=== PATIENT | female | born 1940 | race Caucasian/White ===

== ENCOUNTER → 2017-01-01 | Outpatient (CLI) | payer OTHER ==
[~2017-01-01] MED LIST: ACETAMINOPHEN-1 EACH; ADULT LOW DOSE81 MG PO; AMBIEN 10 MG TA10 MG PO; AMOXICILLIN 50500 M1 PO; APAP/CODEINE ELI5 M1 OR; APAP650 PO; BENADRYL25 MG PO; CELEBREX 200 M200 M1 PO; CELEBREX 200 M200 MG PO; CELEXA10 MG PO; CLARITIN PO; CLARITIN10 M2 PO; COQ1050 MG PO; COUMADIN 4 MG TA4 M1 PO; DOXYCYCLINE 10100 M1 PO; FLEXERIL PO; FOSAMAX 70 MG T70 M1 PO; HYDROCHLOROTHIA25 M2 PO; HYDROCODON-ACE1 EAC5 PO; HYDROCODONE-AP1 EAC6 PO; HYDROCODONE-AP1 EACH PO; LIORESAL 10 MG10 MG PO; LISINOPRIL10 MG PO; LORTAB 5 MG/5001 TA1 PO; MIRALAX255 GM PO; NEXIUM40 MG PO; NORTRIPTYLINE H75 M1 PO; OXYCODONE PO; PREDNISONE 20 M20 MG PO; SKELAXIN 800 M800 M1 PO; TRAMADOL 50 MG50 MG PO; UNICOMPLEX M TA1 TA1 PO; VITAMIN B COMP1 EACH PO; VITAMIN D2000 UNIT PO; ZANAFLEX2 M1 PO; ZANTAC 150MG T150 MG PO; [UNRECOGNIZED DRUG - OTHER] PO
== END ==
LOC: NUC 12-28 08:36
DX: M79.641 Pain in right hand (principal); M79.671 Pain in right foot

== ENCOUNTER → 2019-01-17 | Outpatient (CLI) | payer OTHER ==
[~2019-01-17] VITALS: Ht 157.5 cm; Wt 53.5 kg
[~2019-01-17] MED LIST changes: +CENTRUM SILVER1 EAC4 PO; +CO Q-10100 MG PO; +LISINOPRIL-HCT1 EAC1 PO; +OMEGA-31000 M1 PO; +PRAVASTATIN SOD10 MG PO; +PROBIOTIC1 EAC1 PO; +[UNRECOGNIZED DRUG - OTHER] PO
--- NOTE | ~2019-01-17 | P ---
[facility] [place] [place] [address] PROCEDURE REPORT Name: KEMAL SYED Room #: REG [facility].#: [id number] Admission: 01/17/19 ������������������ Attend Phys: Clifton Vargas MD Discharge: ������������������ Date of : 44 Report #: [id number] THIS REPORT FOR: //name// CC: Indio Vargas OUTPATIENT UPPER ENDOSCOPY REPORT BRIEF HISTORY: The patient is a 78-year-old woman with the prior history of reflux disease, but now complains of esophageal spasm occurring about 3 times daily. She is not taking any medicine for reflux. PREOPERATIVE DIAGNOSES: History of reflux disease and esophageal spasm. POSTOPERATIVE DIAGNOSES: 1. Small hiatus hernia. 2. Intermittently seen Schatzki ring. MEDICATIONS: Deep sedation with propofol per anesthesia. SPECIMEN: None. ESTIMATED BLOOD LOSS: None. PROCEDURE: EGD and Tarango dilation. FINDINGS: Prior to propofol sedation, procedure of upper endoscopy was reviewed with the patient as well as potential risks and its complications. She indicates she understands and desires to proceed. DESCRIPTION OF PROCEDURE: With the patient in left lateral decubitus position, the Olympus video endoscope was inserted in cervical esophagus under direct vision without difficulty. Examination of this organ through its entire length revealed normal esophageal mucosa down the squamocolumnar junction. The squamocolumnar junction was inspected and noted to be unremarkable. No ulcers or erosions were seen. However, intermittently, a mild Schatzki ring was seen. In addition, there was a small hiatus hernia, was intermittently seen, and was no more than 2 cm in greatest dimension. Scope was advanced in the stomach and was examined on the end view as well as retroflexed views. The gastric mucosa was normal. Antrum was unremarkable. Examination in the proximal stomach revealed normal mucosa and specifically, no masses were seen in the cardia. The pylorus, duodenal bulb, and postbulbar duodenal sweep were inspected and noted to be unremarkable. At that point, the scope was withdrawn and careful circumferential views confirmed the above findings. The patient tolerated the procedure well. [facility] [address] [place] [address] PROCEDURE REPORT Name: KEMAL SYED EMILY Room #: REG [facility] Neri.#: [id number] Admission: 01/17/19 ������������������ Attend Phys: Clifton Vargas MD Discharge: ������������������ Date of : 42 Report #: [id number] Subsequently, she was dilated with a passage of a 50-[place] Tarango dilator. There was no resistance. CONDITION OF THE PATIENT UPON DISCHARGE: Following the procedure, the patient was drowsy. She will be discharged home when fully ambulatory. INSTRUCTIONS TO THE PATIENT AND FAMILY AT THE TIME OF DISCHARGE: I do not find the evidence of esophagitis. She describes spasm. She does have a Schatzki ring. She was dilated. I would suggest a PPI on a daily basis as spasm may be related to reflux. We will have her take pantoprazole 40 mg daily. She is to return for a followup in the office in about 6-8 weeks. She is to return for a dilation on an as needed basis for her symptoms of dysphagia. Proceed with colonoscopy at this time. ��������������������������������������������� ���������������������������������������� By: ��������������������������������������������� [id number] Clifton Vargas MD /nt
--- NOTE | ~2019-01-17 | P ---
[facility] [place] [address] PROCEDURE REPORT Name: KUNALKEMALCLAUDE DIAZ Room #: REG [facility].#: [id number] Admission: 01/17/19 ������������������ Attend Phys: Clifton Vargas MD Discharge: ������������������ Date of : 44 Report #: [id number] THIS REPORT FOR: //name// CC: Indio Vargas OUTPATIENT COLONOSCOPY REPORT BRIEF HISTORY: The patient is a 78-year-old woman with a history of colon polyps. She also has a family history of colon cancer in mother at age 48. Her brother had pancreatic cancer at age 50 and a sister had ovarian cancer in her early 50s. I do not believe there has been any genetic testing in the family. PREOPERATIVE DIAGNOSIS: High risk screening colonoscopy. POSTOPERATIVE DIAGNOSIS: Moderate sigmoid diverticulosis coli. MEDICATIONS: Deep sedation with propofol per anesthesia. SPECIMEN: None. ESTIMATED BLOOD LOSS: None. PROCEDURE: Colonoscopy to cecum and terminal ileum. FINDINGS: Prior to propofol sedation, procedure of colonoscopy discussed with the patient as well as potential risks and its complications. She indicates she understands and desires to proceed. DESCRIPTION OF PROCEDURE: With the patient in left lateral decubitus position, digital examination was completed, which revealed no abnormalities. Subsequently, the Olympus video colonoscope was introduced in the rectum, advanced under direct vision to the cecum. Done with minimal difficulty. The cecum was identified by the ileocecal valve and the appendiceal orifice. I was able to visualize the distal segment of terminal ileum, which was inspected and noted to be unremarkable. At that point, the scope was slowly withdrawn and careful circumferential views obtained including retroflexion of the scope in the ascending colon. Upon slow withdrawal of the scope, the prep was generally good. There were a couple areas which needed some cleanup and most of this material could be removed. Mucosa was inspected and noted to be within normal limits. No neoplastic inflammatory changes were seen. She had normal colonic mucosa throughout the entire colon. In the sigmoid colon, there was [id number] sigmoid diverticular disease. Scope was withdrawn in the rectum, no abnormalities were seen. Upon retroflexion, no abnormalities were seen. Scope was withdrawn. The patient tolerated the procedure well. [facility] [address] [place] [address] PROCEDURE REPORT Name: KUNALKEMAL EMILY [id number] Admission: 01/17/19 ������������������ Attend Phys: Clifton Vargas MD Discharge: ������������������ Date of : 44 Report #: [id number] CONDITION OF THE PATIENT UPON DISCHARGE: Following procedure, the patient was drowsy, arousable, conversant and will be discharged home when fully ambulatory. INSTRUCTIONS TO THE PATIENT AND FAMILY AT THE TIME OF DISCHARGE: No evidence of neoplastic disease. FAMILY HISTORY: Somewhat worrisome. She does have a history of colon polyps. However, no polyps were identified on this procedure or the previous procedure 02/2015. I think followup in 5 years would be reasonable. She will return to the care of Dr. Indio Sawant and return to see me as needed. The last colonoscopy was 02/2015. Withdrawal time from the cecum was 15 minutes. ��������������������������������������������� ���������������������������������������� By: ��������������������������������������������� [id number] Clifton Vargas MD /nt
== END | disposition home or self-care (01) ==
LOC: GI 09:09
DX: Z12.11 Encounter for screening for malignant neoplasm of colon (principal); Z86.010 Personal history of colon polyps; Z80.0 Family history of malignant neoplasm of digestive organs; K57.30 Diverticulosis of large intestine without perforation or abscess without bleeding; K22.2 Esophageal obstruction; K44.9 Diaphragmatic hernia without obstruction or gangrene; I10 Essential (primary) hypertension; E78.5 Hyperlipidemia, unspecified; G43.909 Migraine, unspecified, not intractable, without status migrainosus; Z90.49 Acquired absence of other specified parts of digestive tract; Z86.73 Personal history of transient ischemic attack (TIA), and cerebral infarction without residual deficits; Z98.890 Other specified postprocedural states; Z98.41 Cataract extraction status, right eye; Z98.42 Cataract extraction status, left eye; Z79.899 Other long term (current) drug therapy; Z88.8 Allergy status to other drugs, medicaments and biological substances; Z79.82 Long term (current) use of aspirin
CPT/HCPCS: 43450; 43235; G0105; 62110; 62900

== ENCOUNTER → 2019-03-26 | Outpatient (CLI) | payer OTHER | LOC: NUC 08:53 | DX: S82.841A Displaced bimalleolar fracture of right lower leg, initial encounter for closed fracture (principal); M81.0 Age-related osteoporosis without current pathological fracture; Z78.0 Asymptomatic menopausal state; X58.XXXA Exposure to other specified factors, initial encounter; Y93.89 Activity, other specified; Y92.89 Other specified places as the place of occurrence of the external cause; Y99.8 Other external cause status ==

== ENCOUNTER → 2019-04-04 | Outpatient (CLI) | payer OTHER ==
[~2019-04-04] MED LIST changes: +ALL DAY ALLERGY10 M3 PO; +CIPROFLOXACIN750 MG PO; +CITRACAL SOFT1 EACH PO; +HYDROCHLOROTH12.5 M1 PO; +MULTI VITAMIN1 EACH PO; +VITAMIN D31000 UNI3 PO; +ZESTRIL20 MG PO
--- NOTE | 2019-04-04 15:47 | NUR ---
PICC PLACED FOR LT ABX.
== END ==
LOC: OPONC 07:40
DX: T81.49XA Infection following a procedure, other surgical site, initial encounter (principal)
CPT/HCPCS: 27000; 95000

== ENCOUNTER 2019-04-08 09:03 | Inpatient (IN) | payer OTHER ==
[~2019-04-08] VITALS: Ht 152.4 cm; Wt 52.2 kg
[2019-04-08 10:07] VITALS: BP 156/64
[2019-04-08 10:17] LABS: CREATININE 0.8 mg/dL (0.6-1.0); POTASSIUM 3.7 mmol/L (3.5-5.1)
[2019-04-08 16:36] VITALS: BP 142/82
[2019-04-08 19:20] VITALS: BP 121/59
--- NOTE | 2019-04-08 20:09 | NUR ---
PT CARE ASSUMED AT 1700. A&Ox4. PT. IMMOBILE DUE TO A STROKE FROM 4 YEARS AGO. PT HAS CHRONIC LEG SPASMS WHICH SHE TAKES BACLOFEN AND HYDROCODONE FOR ALTERNATING WITH FENTANYL. PT. VITALS ARE STABLE POST OP. PT HAD HARDWARE REMOVED FROM [employer] R. ANKLE AND IS ON A ANTIBIOTIC BULB PUMP WHICH SHE CAME FROM FROM HOME PER AGUSTIN MARTINEZ. PT. SON CAME AT BED SIDE. PT. HAS PERSONAL NURSE THAT IS VERY INVOLVED IF QUESTIONS SHE CAN BE CALLED. PHONE NUMBER IS ON THE BOARD. BED IS LOCKED IN A LOW POSITION. CALL LIGHT IN REACH. PT. HAS HEMOVAC WITH MINIMAL DRAINAGE. PT. IS ON A CLEAR LIQUID DIET AND IS TOLERATING THIS WELL. SHE CAN ADVANCE TO A REGULAR DIET WITH BREAKFAST TOMORROW.
[2019-04-09 04:47] VITALS: BP 120/56
[2019-04-09 05:40] LABS: HEMATOCRIT 28.7 % (37.0-47.0); HEMOGLOBIN 9.6 gm/dL (12.0-15.0); POTASSIUM 3.9 mmol/L (3.5-5.1)
--- NOTE | 2019-04-09 08:32 | EKG ---
[address] [address] ELECTROCARDIOGRAM REPORT Name: KEMAL SYED EMILY Room #: 438-P ADM IN M.R.#: [id number] Admission: 04/08/19 Attend Phys: Gonzalez Stokes MD Discharge: Date of : 42 Report #: [id number] THIS REPORT FOR: //name// [facility] Test Date: 2019-04-08 Test Time: 09:36:51 Pat Name: KEMAL SYED Department: Room: 438 Gender: F Business Management Professor: DERECK : 1940 Requested By: Gonzalez Stokes Order Number: [id number] MD: Marky Engle Measurements Intervals [place] Rate: 66 P: 48 WV: 155 QRS: 5 QRSD: 103 T: 30 QT: 431 QTc: 452 Interpretive Statements Sinus rhythm Baseline wander in lead(s) V2,V3 Compared to ECG 10/07/2009 14:29:00 No significant changes Electronically Signed On 04-09-2019 8:31:50 SLURRY WORKER by Marky Engle [email or web address] <ELECTRONICALLY SIGNED> By: Marky Engle MD 04/09/19 0831 Marky Engle MD /EPI
--- NOTE | 2019-04-09 12:13 | NUR ---
INITIAL ASSESSMENT: Pt evaluated for d/c planning needs. Reviewed chart and spoke with nurse, pt and caregiver. Pt is alert and oriented. Pt was hospitalized at [facility] and went home with [facility] and IVAB through [facility]. Pt was using w/c for ambulation and is non-weight bearing on ankle. Pt plans on returning home on d/c from hospital. Notified [facility] and erita to inform of admission. Will remain available to assist as needed.
--- NOTE | 2019-04-09 12:20 | O ---
[facility] [place] [place] [address] OPERATIVE REPORT Name: KEMAL SYED EMILY Room #: 438-P ADM IN M.R.#: [id number] Admission: 04/08/19 Attend Phys: Gonzalez Stokes MD Discharge: Date of : 42 Report #: [id number] THIS REPORT FOR: //name// CC: Lenard Stokes DATE OF SERVICE: 04/08/2019 PREOPERATIVE DIAGNOSIS: Right ankle wound and hardware infection. POSTOPERATIVE DIAGNOSIS: Right ankle wound and hardware infection. PROCEDURE: Right ankle wound irrigation and debridement with hardware removal. SURGEON: Dr. Gonzalez Stokes. WEIGHT CONTROL ENGINEER: Marie Mckeon. ANESTHESIA: General. ESTIMATED BLOOD LOSS: Minimal. DRAINS: No drains. TOURNIQUET TIME: 20 minutes. DESCRIPTION OF PROCEDURE: The patient was brought to operating room where her right lower extremity was prepped and draped in sterile manner. The extremity was elevated, exsanguinated, tourniquet placed 300 mmHg. The right lower extremity was elevated and a tourniquet placed to 300 mmHg. An elliptical incision was made about the patient's previous wound and open wound. This ellipse of skin was then removed taken directly down to the bone, then did expose the hardware as well. The wound was irrigated copiously and the hardware was then subsequently removed, 6 screws were removed with the small fragment screwdriver. The patient's lateral plate was also removed. After taking cultures, the patient's wound was irrigated with normal saline solution with pulsatile lavage, 3 liters of saline solution was run through the pulsatile lavage. The wound was then closed over a Hemovac drain with 2-0 nylon suture in simple stitch manner. The wound was dressed with Xeroform, 4 x 4s, and sterile soft compressive dressing was placed. Tourniquet was let down at 30 minutes. Toes were pink and warm with good capillary refill. There were no complications [address] [address] OPERATIVE REPORT Name: KEMAL SYED [facility] Room #: 438-P [facility] IN ..#: [id number] Admission: 04/08/19 Attend Phys: Gonzalez Stokes MD Discharge: Date of : 42 Report #: [id number] from the procedure. The patient tolerated the procedure well and went to recovery room without incident. <ELECTRONICALLY SIGNED> By: Gonzalez Stokes MD 04/09/19 1220 1125 [id number] Gonzalez Stokes MD /nt
--- NOTE | 2019-04-09 18:42 | NUR ---
Assumed care pt at 0700. Pt a&ox4. Hemovac drain in place. Dressing clean and intact. Infectious disease doctor saw patient today and ordered IV antibiotics. Prn pain meds administered per pt request. Call light within reach.
[2019-04-09 20:29] VITALS: BP 148/49
--- NOTE | 2019-04-10 03:45 | NUR ---
ASSESSMENT: PT REMAIN ALERT AND ORIENT TIMES THREE. SLOW TO RESPOND TO QUESTIONS R/T OLD CVA. RIGHT HAND IN A SLING PRN TO PREVENT CONTRACTIONS OF THE FINGERS. HEMAVAC NOTED WITH SS OUTPUT. RIGHT ANKLE ELEVATED ON PILLOWS. PRN PAIN MEDS GIVEN OFTEN ORDERED. PT WATCHES CLOCK FOR NEXT DOSE OF PAIN MEDS. L UA PICC PATENT AND INTACT. SON WAS AT THE BEDSIDE AT THE BEGINNING OF THE SHIFT. LATER A FAMILY FRIEND VISITED. PT TOLERATING PO INTAKE. DENIES SOB AND N/V. SLOW PROGRESS TOWARDS DC GOALS, WILL CONTINUE TO MONITOR.
[2019-04-10 07:40] VITALS: BP 163/85
[2019-04-10 12:17] VITALS: BP 171/82
[2019-04-10 14:44] VITALS: BP 171/82
[2019-04-10 16:20] VITALS: BP 170/80
--- NOTE | 2019-04-10 16:49 | NUR ---
FAXED CLINICAL UPDATE TO [facility] RECEIVED CONFIRMATION AND LEFT MSG WITH INTAKE. ANTICIPATE DC TOMORROW.
--- NOTE | 2019-04-10 17:34 | NUR ---
PT IS AOX4, VSS & PT TOLERATES REG DIET WELL. CONTINENT OF B&B. PT RECEIVES BACLOFEN AND PAIN ANALGESIC TOGETHER IN ORDER TO CONTROL MUSCLE SPASMS. LEFT PICC IS PATENT AND S/L. CALL LIGHT IN REACH/PERSONAL ITEMS. WILL CONTINUE TO MONITOR.
[2019-04-10 20:40] VITALS: BP 143/80
--- NOTE | 2019-04-11 03:15 | NUR ---
ASSESSMENT: PT REMAIN ALERT AND ORIENT TIMES THREE. PAIN MEDICATIONS GIVEN PRN WITH PARTIAL RELIEF PER PT. VSS, AFEBRILE. ON THE BEDPAN WITH ADEQUATE URINE OUTPUT. LEFT UPPER ARM PICC PATENT AND INTACT. HEMOVAC DRAIN INTACT WITH SS OUTPUT. TOLERATING REG DIET. SLOW PROGRESS TOWARDS DC GOALS, WILL CONTINUE TO MONITOR.
[2019-04-11 05:15] VITALS: BP 166/73
[2019-04-11 07:30] VITALS: BP 143/64
[2019-04-11 10:00] VITALS: BP 143/64
== END 2019-04-11 17:20 | disposition home health service (06) | DRG 496 ==
LOC: TBA 09:03 → OR 09:03 → TBA 09:04 → OR 10:43 → 4S 16:25 → OR 16:26 → 4S 04-11 17:20
PROVIDERS: ADMIT Orthopaedic Surgery Foot and Ankle Surgery
PROC: 05HY33Z Insertion of Infusion Device into Upper Vein, Percutaneous Approach (ICD-10-PCS; principal; 2019-04-08)
PROC: 0QPG04Z Removal of Internal Fixation Device from Right Tibia, Open Approach (ICD-10-PCS; principal; 2019-04-08)
DX: T84.629A Infection and inflammatory reaction due to internal fixation device of unspecified bone of leg, initial encounter (principal); I69.359 Hemiplegia and hemiparesis following cerebral infarction affecting unspecified side; S91.001A Unspecified open wound, right ankle, initial encounter; L08.9 Local infection of the skin and subcutaneous tissue, unspecified; B96.5 Pseudomonas (aeruginosa) (mallei) (pseudomallei) as the cause of diseases classified elsewhere; Y83.8 Other surgical procedures as the cause of abnormal reaction of the patient, or of later complication, without mention of misadventure at the time of the procedure; G89.18 Other acute postprocedural pain; Z88.5 Allergy status to narcotic agent; Z91.048 Other nonmedicinal substance allergy status; Y92.89 Other specified places as the place of occurrence of the external cause; Z79.899 Other long term (current) drug therapy
CPT/HCPCS: 10102; 10195; 50010; 50101; 50386; 53078; 56526; 57091; 62110; 62900; 70005

== ENCOUNTER → 2019-05-28 | Outpatient (CLI) | payer OTHER | LOC: RAD 11:15 | DX: M25.362 Other instability, left knee (principal); Z98.890 Other specified postprocedural states ==

== ENCOUNTER → 2020-06-11 | Outpatient (CLI) | payer OTHER | LOC: SJCVC 12:44 | PROVIDERS: ATTEND Internal Medicine Cardiovascular Disease | DX: R07.9 Chest pain, unspecified (principal); I10 Essential (primary) hypertension; E78.00 Pure hypercholesterolemia, unspecified; R06.00 Dyspnea, unspecified; E78.5 Hyperlipidemia, unspecified; Z79.82 Long term (current) use of aspirin; Z79.899 Other long term (current) drug therapy; Z86.73 Personal history of transient ischemic attack (TIA), and cerebral infarction without residual deficits ==

== ENCOUNTER → 2020-06-25 | Outpatient (CLI) | payer OTHER | LOC: SJCVCIMAG 07:26 | PROVIDERS: ATTEND Internal Medicine Cardiovascular Disease | DX: I08.2 Rheumatic disorders of both aortic and tricuspid valves (principal); I10 Essential (primary) hypertension; E78.00 Pure hypercholesterolemia, unspecified; I63.9 Cerebral infarction, unspecified; E78.5 Hyperlipidemia, unspecified; Z79.82 Long term (current) use of aspirin; Z79.899 Other long term (current) drug therapy; Z82.49 Family history of ischemic heart disease and other diseases of the circulatory system ==